=== PATIENT | female | born 1995 | race African-American/Black ===

== ENCOUNTER 2023-05-07 22:05 | Emergency (ER) | payer OTHER ==
[~2023-05-07] VITALS: Ht 152.4 cm; Wt 123.5 kg
[2023-05-07 22:35] VITALS: BP 138/102; O2SAT 99
[2023-05-08] MEDS ORDERED: DIAZEPAM 5 MG TABLET PO ONE (02:15)
[2023-05-08] MEDS ORDERED: KETOROLAC 15MG/ML VIAL IM ONE (02:15)
[2023-05-08] MEDS ORDERED: METH-653 MT (03:36)
[2023-05-08] MEDS ORDERED: NAPR-681 MT (03:36)
[2023-05-08 03:57] VITALS: PULSE 97; RESP 19; TEMP 98.6
== END 2023-05-08 03:58 | disposition home or self-care (01) ==
LOC: ER 22:05
DX: M54.50 Low back pain, unspecified (principal); Z98.890 Other specified postprocedural states; Z90.49 Acquired absence of other specified parts of digestive tract
CPT/HCPCS: 99283; 96372; J1885